=== PATIENT | male | born 1995 | race American Indian/Alaskan Native ===

== ENCOUNTER 2017-10-28 15:39 | Emergency (ER) | payer OTHER ==
[2017-10-28] MEDS ORDERED: Sodium Chloride 0.9% 1,000 ML IV ONE (16:00)
[2017-10-28] MEDS ORDERED: Dextrose 5%-Lactated Ringers 1,000 ML IV SCH (16:00)
[2017-10-28] MEDS: Sodium Chloride 0.9% 10 ML Syringe FLUSH PRN ×2 (16:42→18:15)
[2017-10-28] MEDS ORDERED: Hydrocortisone Sodium Succinate 250 MG/2 ML SDV IV ONE (17:45)
[2017-10-28] MEDS ORDERED: methylPREDNISolone Sodium Succinate 125 MG/2 ML SDV IVPUSH ONE (18:05)
--- NOTE | 2017-10-30 14:42 | ER ---
DATE SEEN: 10/28/2017 TIME SEEN: The patient was seen at 1445 hours. HISTORY OF PRESENT ILLNESS: This 22-year-old single, nonsmoking, employee of [employer] has had diarrhea for 6 months. Noted blood in the stool this afternoon. Has felt warm last night, felt like he had a fever last night. He had no unusual foods eaten. He notes when he has eaten food in the past 3 days, abdomen was uncomfortable. Has nausea. No vomiting, no fever, no chills otherwise except for last night. He had used naproxen, but it irritated his stomach. He stopped using ibuprofen and naproxen in the past 6 months. Ibuprofen causes pain. He uses omeprazole [id number] intermittently. Last alcohol was a week ago, and he drank Etoh for 3 days days since that. He does not drink alcohol usually. At 1000 hours, he had black watery stool with his diarrhea. No history of weight loss. FAMILY HISTORY: His father and his maternal grandmother have Crohn disease. ALLERGIES: None. MEDICATIONS: None except for omeprazole [id number]. REVIEW OF SYSTEMS: Negative, except as noted above. GI: He has had this abdominal discomfort for the last 6 months. He notes that stress makes it slightly worse. It varies between constipation and loose stools. He thinks the loose stool is worse. He has never had alcoholic pancreatitis or hepatitis. He drinks rarely. He did not drink to excess recently. He feels slightly lightheaded. PAST MEDICAL HISTORY: Negative. PAST SURGICAL HISTORY: No previous surgeries. PHYSICAL EXAMINATION: VITAL SIGNS: Blood pressure 140/81, heart rate 122, respirations 14, oxygen saturation 98%, and temperature 36.7 degrees centigrade. GENERAL: Asthenic and pleasant man in mild distress. He is somewhat stoic. HEENT: PERRLA intact. Pharynx without abnormality. No ulcers demonstrated. No ocular abnormalities. NECK: No thyromegaly or masses in neck. No cervical adenopathy. LUNGS: Clear without rales, rhonchi, or wheezes. HEART: Without murmur. Sinus tachycardia noted. No rhythm disturbance. ABDOMEN: Soft with mild generalized abdominal discomfort. No heel tap rebound. No CVA percussion tenderness. EXTREMITIES: Lower extremities without edema. Deep tendon reflexes in upper and lower extremities symmetrical, 1+, normoactive. NEUROLOGIC: Cranial nerves 2 through 12 intact. Strength intact. Gait appropriate. No dizziness noted. LABORATORY FINDINGS: He has normal CBC and normal CMP with normal hemoglobin 14, white count 8100, PMNs 71, lymphocytes 23, monos 5, and platelets 254,000. Normal complete metabolic panel. I did not do a CAT scan of his abdomen, felt his symptoms would stabilize if he received intravenous fluid. He felt much better after he had 1000 mL of normal saline flush and a dose of Solu-Medrol 125 mg IV. ASSESSMENT: 1. Probable Crohn disease. 2. He has intermittent bouts of constipation and diarrhea. 3. Alcohol caused exacerbation of what we considered Crohn's. 4. Family history of a grandmother and also his father having Crohn disease, so most likely he has some of the genetic predisposition of Crohn disease. PLAN: Use prednisone 20 mg daily for the next 10 days. Follow up with his doctor in a week,earlier if worse. /[id number] THEODORA/GLENNA PERES
== END 2017-10-28 18:17 | disposition home or self-care (01) ==
LOC: FB.ED 15:39
DX: K59.00 Constipation, unspecified (principal); R19.7 Diarrhea, unspecified; Z83.79 Family history of other diseases of the digestive system
CPT/HCPCS: 36415; 80053; 85025; 96361; 96374; 99284; J2930; J7042; J7050

== ENCOUNTER 2017-11-16 07:42 | Day surgery (SDC) | payer OTHER ==
[2017-11-16] MEDS ORDERED: Sodium Chloride 0.9% 10 ML Syringe FLUSH PRN (07:45)
[2017-11-16] MEDS ORDERED: Lactated Ringers 1,000 ML IV SCH (07:45)
[2017-11-16] MEDS ORDERED: Midazolam 1 MG/ML 2 ML SDV IV ONE (09:45)
[2017-11-16] MEDS ORDERED: Propofol 200 MG/20 ML SDV IV ONE (09:45)
[2017-11-16] MEDS ORDERED: Lidocaine 2% 100 MG/5 ML Syringe IVPUSH ONE (09:45)
--- NOTE | 2017-11-16 10:13 | PCM.OPNOTE ---
- General Post-Op/Procedure Note Date of Surgery/Procedure: 11/16/17 Operative Procedure(s): egd with bx Findings: gastritis esophagitis Pre Op Diagnosis: epigastric abd pain and melena Post-Op Diagnosis: gastritis. esophagitis Anesthesia Technique: MAC Primary Surgeon: Thee Cisse Anesthesia Provider: Reina Brown Pathology: stomach and esophagus Complications: None Condition: Good Free Text/Narrative:: see dictation
--- NOTE | 2017-11-16 11:38 | OR ---
DATE OF OPERATION: 11/16/2017 SURGEON: Thee Cisse MD PROCEDURE PERFORMED: Upper endoscopy with cold forceps biopsy. PREOPERATIVE DIAGNOSIS: History of epigastric abdominal pain and melena. POSTOPERATIVE DIAGNOSIS: Gastritis and esophagitis. INDICATIONS FOR PROCEDURE: This is a 22-year-old white male referred with the above-mentioned complaints. He was offered and accepted an EGD. DESCRIPTION OF PROCEDURE: After an excellent IV sedation was administered, the bite block was inserted. The flexible endoscope was passed without difficulty down the patient's esophagus into the stomach. The stomach was insufflated, scope was passed through the pylorus to the 2nd portion of the duodenum, and slowly withdrawn. The following findings were noted: The duodenum was unremarkable. The stomach demonstrated some diffuse gastritis. Multiple biopsies were taken. GE junction measured at 45 cm and esophagitis was noted at the distal 3rd of the esophagus. Random biopsies were taken. Colon was deflated. Scope was removed. The patient tolerated the procedure well, and was taken to recovery room in good condition. /[id number] /MODL
== END 2017-11-16 11:10 | disposition home or self-care (01) ==
LOC: FB.SDS 07:42
PROVIDERS: ATTEND Surgery
DX: K29.50 Unspecified chronic gastritis without bleeding (principal); K20.9 Esophagitis, unspecified; Z79.899 Other long term (current) drug therapy; Z87.891 Personal history of nicotine dependence
CPT/HCPCS: 88305; 88313; J2250; J2704; J7120